=== PATIENT | male | born 1955 | race Asian ===

== ENCOUNTER 2017-12-30 13:42 | Outpatient (CLI) | payer OTHER | END 2017-12-30 13:43 | disposition home or self-care (01) | LOC: ULT 13:42 | DX: I27.20 Pulmonary hypertension, unspecified (principal); I08.1 Rheumatic disorders of both mitral and tricuspid valves | CPT/HCPCS: 93306 ==

== ENCOUNTER 2018-05-12 10:20 | Observation (INO) | payer OTHER ==
[2018-05-12 11:26] LABS: #Basophils 0.1 thou/uL (0.0-0.2); #Eosinphils 0.2 thou/uL (0.0-0.7); #Lymphocytes 2.6 thou/uL (1.20-3.40); #Monocytes 0.5 thou/uL (0.11-0.59); #Neutrophils 5.8 thou/uL (1.40-6.50); %Basophils 1.2 % (0.0-1.0); %Eosinophils 2.5 % (0.0-10.0); %Monocytes 5.2 % (0.0-10.0); %Neutrophils 63.1 % (42.0-75.0); Hemoglobin 14.1 g/dL (14.0-18.0); Mean Corpuscular HGB CONC 32.4 g/dL (32.0-36.0); Mean Corpuscular Hemoglobin 29.3 pg (27.0-31.0); Mean Corpuscular Volume 90.3 fL (78.0-98.0); Mean Platelet Volume 7.3 fL (7.4-10.4); Platelet Count 225 thou/uL (130-400); RBC Distribution Width 11.3 % (11.5-14.5); Red Blood Cell (RBC) Count 4.83 mill/uL (4.70-6.10); White Blood Cell (WBC) Count 9.2 thou/uL (4.8-10.8)
[2018-05-12 11:38] LABS: ALT (SGPT) 28 U/L (8-55); AST (SGOT) 25 U/L (5-34); Albumin 4.2 g/dL (3.4-4.8); Alkaline Phosphatase 96 U/L (40-150); Anion Gap 16 mmol/L (10-20); BUN (Urea Nitrogen) 15 mg/dL (8.4-25.7); Bilirubin, Total 0.6 mg/dL (0.2-1.2); CK (CPK) 126 U/L (30-200); Calc. Creatinine Clearance 0 mL/min (70-130); Calcium 9.4 mg/dL (7.8-10.44); Carbon Dioxide 21 mmol/L (23-31); Chloride 106 mmol/L (98-107); Estimated GFR-MDRD 72; Globulin 3.2 g/dL (2.4-3.5); Glucose 128 mg/dL (80-115); Potassium 4.7 mmol/L (3.5-5.1); Protein, Total 7.4 g/dL (5.8-8.1); Sodium 138 mmol/L (136-145)
--- NOTE | 2018-05-12 12:52 | RAD ---
CHEST ONE VIEW: History: Altered mental status. Comparison: None. FINDINGS: Lungs are clear. No pneumothorax or effusion. Cardiac silhouette and mediastinal contours are within normal limits. IMPRESSION: No acute intrathoracic abnormality. POS: [facility]
--- NOTE | 2018-05-12 12:54 | CT ---
HEAD CT WITHOUT CONTRAST: Date: 05-12-18 Comparison: 04-11-16 History: Altered mental status. Technique: Axial CT imaging at .8 mm intervals from vertex through skull base without contrast. FINDINGS: The imaged paranasal sinuses/mastoid air cells appear grossly unremarkable. There are a few scattered calvarial lytic lesions, unchanged when compared to the 04-11-16 examination . There is no intracranial hemorrhage, midline shift, mass effect, or ventricular enlargement. IMPRESSION: No acute findings. POS: [facility]
--- NOTE | 2018-05-12 12:58 | CT ---
CT ANGIOGRAM OF THE NECK: Date: 05-12-18 Comparison: None. History: Syncope and dizziness. Technique: Axial CT imaging at 2 mm intervals from skull base through lung apices with IV contrast us ing a CT angiogram protocol. Coronal and sagittal 3D reformatted imaging obtained. FINDINGS: Imaged lung apices unremarkable. Parotid glands and submandibular glands appear within normal limits. The retro antral fat the parapharyngeal fat appears clear bilaterally. Calcifications noted in the region of the tonsillar pillars bilaterally suggesting prior inflammatory change. The epiglottic and preepiglottic fat, the hyoid bone, the thyroid cartilage, the cricoid car tilage and the thyroid gland appear unremarkable. No lymphadenopathy is noted in the neck. The origin of the left subclavian artery, left common carotid artery, innominate artery, right subcla vian artery, and right common carotid artery appear grossly unremarkable. The origin of bilateral sejal tebral arteries appears normal. Bilateral vertebral arteries are patent and demonstrate no stenosis or occlusion. On the basis of NASCET criteria, there is no hemodynamically significant stenosis seen involving the common or internal carotid artery on either side. Review of the osseous structures demonstrates degenerative change at the atlantoaxial interspace. No worrisome lytic or blastic bone lesion. IMPRESSION: 1. Grossly unremarkable CT angiogram of the neck. POS: [facility]
[2018-05-12 14:19] LABS: Troponin I Less than 0.010 ng/mL (< 0.028)
[2018-05-12] MEDS ORDERED: Ondansetron ODT 4 MG TAB SL PRN (15:16)
[2018-05-12] MEDS ORDERED: Ondansetron PF 4 MG/2 ML Vial IVP PRN (15:16)
[2018-05-12] MEDS ORDERED: Acetaminophen 325 MG TAB PO PRN (15:16)
[2018-05-12] MEDS ORDERED: Meclizine HCl 25 MG TAB PO PRN (17:28)
[2018-05-12] MEDS ORDERED: Sodium Chloride 0.9% 1,000 ML IV SCH (17:30)
[2018-05-12 17:36] LABS: Troponin I Less than 0.010 ng/mL (< 0.028)
[2018-05-12] MEDS ORDERED: Rosuvastatin 20 MG TAB PO SCH (21:30)
--- NOTE | 2018-05-13 00:09 | HP ---
PRIMARY CARE PHYSICIAN: Philipp Elliott DO CHIEF COMPLAINT: "When I sit up, I feel dizzy, like I might pass out." HISTORY OF PRESENT ILLNESS: Mr. Yi is a very pleasant 62-year-old gentleman with a medical history of dyslipidemia, benign prostatic hypertrophy, anxiety/depression, pulmonary hypertension and obstructive sleep apnea, presenting in transfer from [facility] Emergency Department. He was in his usual state of good health, recalls having a brief upper respiratory infection last week, which had resolved. He got up this morning, went to let the dog out on the back patio. While standing, he abruptly became dizzy, feeling that he might pass out. He began to fall backwards, was able to catch himself on some patio furniture. He did not hit his head, nor have trauma. He felt nausea associated with the symptoms. No chest pain/chest pressure/shortness of breath. He did not lose consciousness. His heard the chairs moving on the patio, came to check on him. 911 was called, but the patient declined transfer to the emergency department at that time. Instead, he went to see his primary care doctor, Dr. Elliott. While in the office, he had a repeat episode, this time when going from a lying to a seated position. He describes this as dizziness with some mild nausea, improved after being in the same position for a protracted period of time. It does not feel like "the world is spinning." No prior similar symptoms. He subsequently went to [facility] Emergency Room, where CT angiography of the neck was done and was negative. CT of the head was done and was negative. Chest x-ray, cardiac biomarkers also performed, negative. EKG notable for sinus bradycardia at 57 beats per minute. Subsequent transfer to [facility] requested. At the time of my evaluation, Mr. Yi is comfortable and lying flat. When going from a lying to seated position or seated to standing, he feels dizzy, like he is going to fall backwards. With time in the same position, symptoms improve. Thus far, telemetry has been unremarkable, and he has remained hemodynamically stable. Formal orthostatics either not performed or not available for review from the emergency department, and will be performed here on the floor with a nurse in the next few minutes. He has not eaten today, has not been drinking much either. PAST MEDICAL HISTORY: 1. The patient with a history of pulmonary hypertension, diagnosed 1-1/2 years ago in [place], [place]. As followup for this diagnosis, he was referred for sleep study. He underwent a formal sleep evaluation and was diagnosed with obstructive sleep apnea. He uses CPAP at home. 2. Benign prostatic hypertrophy-he has been on Flomax for the last 1-1/2 years. 3. Dyslipidemia. 4. Anxiety/depression, well controlled on sertraline. PAST SURGICAL HISTORY: Sinus surgery in the care of Dr. Arshad. HOME MEDICATIONS: 1. Aspirin 81 mg p.o. once daily. 2. Crestor 20 mg p.o. once daily. 3. Flomax 0.4 mg p.o. once daily. 4. Sertraline 50 mg p.o. once daily. ALLERGIES: NONE. FAMILY HISTORY: Father of complications of hypertension and diabetes. Mother is living, has history of dementia and history of blood clots. He has 2 children, both of whom are healthy. 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 His hobbies include watching TV. He does not drink alcohol or use illicit drugs, and has no tobacco history. He is and his and children accompany him to the hospital today. REVIEW OF SYSTEMS: Full review of systems reviewed, addressed, negative except otherwise as mentioned above. PHYSICAL EXAMINATION: VITAL SIGNS: Current vital signs, blood pressure 119/71, heart rate 67, temperature 98.6, respiratory rate 16, and saturating 95% on room air. GENERAL: Awake, alert, oriented gentleman, resting comfortably. Able to provide a good history. HEENT: Eyes, no conjunctival injection, no scleral icterus. Extraocular movements are intact. Pupils are reactive to light and accommodation. Oropharynx is clear. Uvula is midline. NECK: Supple. Full range of motion. No distinct bruit. Cranial nerves intact. HEART: Regular rate and rhythm, no distinct murmurs/rubs/gallops. LUNGS: Clear to auscultation bilaterally. ABDOMEN: Soft, nontender, nondistended. EXTREMITIES: No clubbing/cyanosis/edema. NEUROLOGIC: Gross motor testing is intact, 5/5 proximal and distal muscle groups. Withstanding, becomes off-balance (Romberg), no abnormal reflexes elicited. Sensation intact. Cranial nerves intact. Cerebellar testing without distinct abnormality. LABORATORY/DATA REVIEW: I personally reviewed his EKG, sinus bradycardia at 57 beats per minute. Labs reviewed, 2 sets of cardiac biomarkers negative thus far. Chest x-ray negative. CT head unremarkable. CT angiogram of the neck negative. IMPRESSION: 1. Near-syncope in the context of dizziness with possible orthostatic component. 2. Pulmonary hypertension. 3. Obstructive sleep apnea. 4. Benign prostatic hypertrophy, on Flomax. 5. Dyslipidemia. 6. Anxiety/depression. PLAN/RECOMMENDATIONS: 1. Cardiology-one additional set of cardiac biomarkers planned. From a risk factor standpoint, takes a daily aspirin, is also on statin medication. No distinct murmur on physical exam. Check formal orthostatic vital signs. Unable to elicit if this was performed prior to transfer as well. Consideration for orthostatic hypotension in the context of Flomax, although the patient has been on this current regimen for over a year and a half. 2. Neurology-continue neuro checks q.4 hourly. Request MRI of the brain. Request Neurology consultation. Trial of low-dose meclizine. Benign positional vertigo remains on the differential. 3. Anxiety/depression-continue home sertraline. 4. Benign prostatic hypertrophy-place Flomax on hold for the time being. 5. Pulmonary-continue home CPAP. 6. Given his age and symptoms, he is at elevated risk, placed on observation status with further recommendations pending hospital course. 7. DVT prophylaxis-Lovenox. Job ID: [id number] MTDD
[2018-05-13 05:04] VITALS: BMI 25.9
[2018-05-13 06:59] LABS: #Basophils 0.1 thou/uL (0.0-0.2); #Eosinphils 0.2 thou/uL (0.0-0.7); #Monocytes 0.6 thou/uL (0.11-0.59); #Neutrophils 5.5 thou/uL (1.40-6.50); %Basophils 0.5 % (0.0-1.0); %Eosinophils 2.6 % (0.0-10.0); %Lymphocytes 32.1 % (21.0-51.0); %Neutrophils 58.8 % (42.0-75.0); Hemoglobin 13.1 g/dL (14.0-18.0); Mean Corpuscular HGB CONC 33.9 g/dL (32.0-36.0); Mean Corpuscular Hemoglobin 30.9 pg (27.0-31.0); Mean Corpuscular Volume 91.2 fL (78.0-98.0); Mean Platelet Volume 6.9 fL (7.4-10.4); Platelet Count 239 thou/uL (130-400); RBC Distribution Width 11.4 % (11.5-14.5); Red Blood Cell (RBC) Count 4.24 mill/uL (4.70-6.10); White Blood Cell (WBC) Count 9.3 thou/uL (4.8-10.8)
[2018-05-13 07:15] LABS: Anion Gap 9 mmol/L (10-20); BUN (Urea Nitrogen) 13 mg/dL (8.4-25.7); Calc. Creatinine Clearance 90 mL/min (70-130); Calcium 8.7 mg/dL (7.8-10.44); Carbon Dioxide 26 mmol/L (23-31); Chloride 107 mmol/L (98-107); Estimated GFR-MDRD 82; Glucose 102 mg/dL (80-115); Sodium 138 mmol/L (136-145)
[2018-05-13] MEDS ORDERED: Aspirin 81 mg Enteric Coated Tablet PO SCH (09:00)
[2018-05-13] MEDS ORDERED: Non-Formulary Item 1 EACH (Ferrous Sulfate [Ferosul] 325 MG) PO SCH (09:00)
[2018-05-13] MEDS ORDERED: Tamsulosin HCl 0.4 MG CAP PO SCH (09:00)
[2018-05-13] MEDS ORDERED: Rosuvastatin 20 MG TAB PO SCH ×2 (09:00→21:00)
[2018-05-13] MEDS ORDERED: Enoxaparin Sodium 40 MG/0.4 ML SYRINGE SC SCH (09:00)
[2018-05-13] MEDS ORDERED: Ferrous Sulfate 325 MG TAB PO SCH (09:00)
[2018-05-13 09:58] LABS: Hemoglobin A1c 6.3 % (4.0-6.0)
[2018-05-13 10:09] LABS: Cardiac Risk 3.2 (Less than 4.5)
--- NOTE | 2018-05-13 10:31 | MRI ---
MRI BRAIN AND INTERNAL AUDITORY CANALS WITH AND WITHOUT CONTRAST: DATE: 05/13/18 HISTORY: 62-year-old male with dizziness and altered mental status. TECHNIQUE: Multiple sequences obtained in axial, sagittal, and coronal planes; both whole brain images and thin slices through the IAC's, pre and post IV injection of gadolinium-based contrast agent: 15 mL MultiHa nce. FINDINGS: The ventricles are normal in size and configuration. There is no major intraaxial signal abnormality , restricted diffusion, abnormal intraaxial enhancement, mass, midline shift or any other mass effect , recent intraaxial hemorrhage, or extraaxial fluid collection. There is no abnormal enhancement, mass, or morphologic abnormality, involving the cerebellopontine an gles, 7th-8th nerve complexes, internal auditory canals, cochleae, vestibules, vestibular aqueducts, or semicircular canals. There is an incidental finding of a partially empty sella. IMPRESSION: Essentially normal. jn[] POS: [facility]
--- NOTE | 2018-05-13 10:42 | PDOC.PN ---
- Subjective Encounter Start Date: 05/13/18 Encounter Start Time: 07:50 -: old records requested/rev Patient seen and examined. No new complaints. No overnight events has dizziness with seating or standing - Objective Resuscitation Status - Order Detail: 05/12/18 17:22 Resuscitation Status Routine Resuscitation Status: FULL: Full Resuscitation MAR Reviewed: Yes Vital Signs & Weight: Vital Signs (12 hours) Temp Pulse Resp BP BP BP Pulse Ox 05/13/18 08:08 98.2 F 69 16 116/61 125/68 120/64 95 05/13/18 03:56 98.3 F 70 18 110/64 95 Weight Weight 170 lb 12.8 oz I&O: 05/12/18 05/13/18 05/14/18 06:59 06:59 06:59 Intake Total 1540 Balance 1540 Result Diagrams: 05/13/18 06:45 05/13/18 06:45 Radiology Reviewed by me: Yes (MRI normal) EKG Reviewed by me: Yes (nsr) Phys Exam - Physical Examination Constitutional: NAD HEENT: PERRLA, moist MMs, sclera anicteric Neck: no JVD, supple Respiratory: no wheezing, no rales, no rhonchi Cardiovascular: RRR, no significant murmur, no rub Gastrointestinal: soft, non-tender, no distention, positive bowel sounds Musculoskeletal: no edema, pulses present Neurological: non-focal, normal sensation, moves all 4 limbs Lymphatic: no nodes Psychiatric: normal affect, A&O x 3 Skin: no rash, normal turgor Dx/Plan (1) Dizziness Code(s): R42 - DIZZINESS AND GIDDINESS Status: Acute (2) Dyslipidemia Code(s): E78.5 - HYPERLIPIDEMIA, UNSPECIFIED Status: Chronic (3) ALEXANDRA on CPAP Code(s): G47.33 - OBSTRUCTIVE SLEEP APNEA (ADULT) (PEDIATRIC); Z99.89 - DEPENDENCE ON OTHER ENABLING MACHINES AND DEVICES Status: Chronic (4) BPH (benign prostatic hyperplasia) Code(s): N40.0 - BENIGN PROSTATIC HYPERPLASIA WITHOUT LOWER URINRY TRACT SYMP Status: Chronic - Plan cont current plan of care * dizziness suspecting from peripheral etiology, will continue meclizine * will give prednisone 40 mg po daily for 5 days for possible labyrinthitis * medication reviewed as below * symptomatic treatment. Review of Systems - Review of Systems Constitutional: negative: fever, chills, sweats, weakness, malaise, other Eyes: negative: Pain, Vision Change, Conjunctivae Inflammation, Eyelid Inflammation, Redness, Other ENT: Ear Pain, Nose Congestion. negative: Ear Discharge, Nose Pain, Nose Discharge, Mouth Pain, Mouth Swelling, Throat Pain, Throat Swelling, Other Respiratory: negative: Cough, Dry, Shortness of Breath, Hemoptysis, SOB with Excertion, Pleuritic Pain, Sputum, Wheezing Cardiovascular: light headedness. negative: chest pain, palpitations, orthopnea , paroxysmal nocturnal dyspnea, edema, other Gastrointestinal: negative: Nausea, Vomiting, Abdominal Pain, Diarrhea, Constipation, Melena, Hematochezia, Other Genitourinary: negative: Dysuria, Frequency, Incontinence, Hematuria, Retention , Other Musculoskeletal: negative: Neck Pain, Shoulder Pain, Arm Pain, Back Pain, Hand Pain, Leg Pain, Foot Pain, Other Skin: negative: Rash, Lesions, Joon, Bruising, Other - Medications/Allergies Allergies/Adverse Reactions: Allergies Allergy/AdvReac Type Severity Reaction Status Date / Time Beef Containing Products Allergy Verified 05/12/18 17:37 No Known Drug Allergies Allergy Verified 05/12/18 15:35 Pork/Porcine Containing Allergy Verified 05/12/18 17:37 Products Medications: Current Medications Aspirin (Ecotrin) 81 mg PO DAILY [facility] Last Admin: 05/13/18 08:38 Dose: Not Given Enoxaparin Sodium (Lovenox) 40 mg SC 0900 [facility] Last Admin: 05/13/18 08:36 Dose: 40 mg Ferrous Sulfate (Feosol) 325 mg PO DAILY [facility] Last Admin: 05/13/18 08:38 Dose: Not Given Meclizine HCl (Antivert) 25 mg PO Q8H [facility] Rosuvastatin Calcium (Crestor) 20 mg PO HS [facility] Sertraline HCl (Zoloft) 50 mg PO DAILY [facility] Last Admin: 05/13/18 08:38 Dose: Not Given Tamsulosin HCl (Flomax) 0.4 mg PO DAILY [facility] Last Admin: 05/13/18 08:38 Dose: Not Given
--- NOTE | 2018-05-13 12:17 | DIS ---
DATE OF ADMISSION: 05/12/2018 DATE OF DISCHARGE: 05/13/2018 PRIMARY CARE PHYSICIAN: Philipp Elliott, DISCHARGE DISPOSITION: Home. PRIMARY DISCHARGE DIAGNOSES: 1. Dizziness, suspecting from peripheral etiologies of vertigo. 2. Suspected acute labyrinthitis. SECONDARY DISCHARGE DIAGNOSES: Benign enlargement of prostate, dyslipidemia, and obstructive sleep apnea on CPAP. PRIMARY PROCEDURE/OPERATION: None. RADIOLOGICAL INVESTIGATION: CT brain normal. Chest x-ray normal. CT angiography of [place], negative. MRI brain normal. SIGNIFICANT LABORATORY DATA: WBC 9.3, hemoglobin 13.1, and platelet 239. Sodium 138, potassium 4.0, BUN 13, creatinine 0.93, and calcium 8.7. Cardiac enzyme negative. LDL 72. TSH 3.41. Hemoglobin A1c 6.3. DISCHARGE MEDICATIONS: 1. Prednisone 40 mg p.o. daily for 5 days. 2. Antivert 25 mg t.i.d. as directed. 3. Ferrous sulfate 325 mg p.o. daily. 4. Crestor 20 mg p.o. at bedtime. 5. Flomax 0.4 mg p.o. daily. 6. Ecotrin 81 mg daily. CONTRAINDICATION: None. CODE STATUS: Full code. INPATIENT CITIZENSHIP TEACHER: Javier [place] MD ALLERGIES: NO KNOWN DRUG ALLERGIES. DISCHARGE PLAN: Posthospital, the patient is instructed to follow up with ENT doctor. HOSPITAL COURSE: A 62-year-old male with above-mentioned medical problem, who was admitted by Dr. Ami Craft. Please see her H and P for further details. This patient experienced vertigo symptoms at home after waking up in his patio. He had episode of fall without any trauma and subsequently, he went to see primary care physician, where he had vertigo symptoms when he was standing from sitting position and at emergency room, he had similar vertigo symptoms. He did not have any symptoms related with position of head, but whenever he was changing from sitting, standing position at that time, he was experiencing vertigo symptoms. He did not have any cerebellar sign. He does have chronic sinus problem and he does have tinnitus as well as ear pain. He is following ENT as outpatient basis. We did MRI brain with internal auditory canal protocol, which was essentially normal. At this point, our suspicion is for acute labyrinthitis and that is why we are prescribing Antivert and prednisone for 5 more days. The patient is given safety instruction measures discussion and he will continue all his previous medication. The patient is seen and examined at bedside today. Please see my progress note from today for further details. This patient will be discharged home later on today once Neurology see him. Job ID: [id number]
[2018-05-13 12:29] VITALS: BP 127/72; TEMP 98.1
[2018-05-13] MEDS ORDERED: Meclizine HCl 25 MG TAB PO SCH (14:00)
== END 2018-05-13 15:27 | disposition home or self-care (01) ==
LOC: SCSER 10:20 → 2SW 13:00
PROVIDERS: ADMIT Internal Medicine; ATTEND Internal Medicine
DX: R42 Dizziness and giddiness (principal); N40.0 Benign prostatic hyperplasia without lower urinary tract symptoms; E78.5 Hyperlipidemia, unspecified; G47.33 Obstructive sleep apnea (adult) (pediatric); H93.19 Tinnitus, unspecified ear; H92.09 Otalgia, unspecified ear; F41.8 Other specified anxiety disorders; I27.20 Pulmonary hypertension, unspecified; Z79.82 Long term (current) use of aspirin; Z79.899 Other long term (current) drug therapy; Z91.018 Allergy to other foods; Z99.89 Dependence on other enabling machines and devices
CPT/HCPCS: 36415; 70450; 70498; 70551; 70553; 71045; 80048; 80053; 80061; 82550; 83036; 83605; 84443; 84484; 85025; 93005; 94760; 96360; 96361; 96372; G0378; J1650

== ENCOUNTER 2018-08-24 07:33 | Outpatient (CLI) | payer OTHER ==
--- NOTE | 2018-08-24 09:04 | CT ---
ABDOMEN AND PELVIC CT SCAN WITH AND WITHOUT IV CONTRAST: Date: 08/24/18 HISTORY: Microscopic hematuria. History of prior kidney mass. FINDINGS: Lung bases are clear. Liver appears unremarkable. Mobile gallstones in the gallbladder without gallbl adder wall thickening or evidence for acute cholecystitis. Pancreas, spleen, and adrenal glands are u nremarkable. 2 cm diameter left renal cyst. No renal calculus or acute obstruction. Normal appeari ng appendix. Bilateral fat-containing inguinal hernias. No large or small bowel obstruction. No absce ss, adenopathy, or abnormal fluid collection within the abdomen or pelvis. IMPRESSION: 1. Left renal cyst. 2. Bilateral fat-containing inguinal hernias. 3. No evidence for renal calculus or obstruction. 4. Unremarkable appearing urinary bladder. 5. Small hiatal hernia. 6. Other findings as above. POS: [facility]
[2018-08-24] MEDS ORDERED: Iopamidol 300 61% 100 ML VIAL FS ONE (18:08)
== END 2018-08-24 07:34 | disposition home or self-care (01) ==
LOC: SCSCT 07:33
PROVIDERS: ATTEND Urology
DX: R31.29 Other microscopic hematuria (principal); K44.9 Diaphragmatic hernia without obstruction or gangrene; K40.20 Bilateral inguinal hernia, without obstruction or gangrene, not specified as recurrent; N28.1 Cyst of kidney, acquired; K80.20 Calculus of gallbladder without cholecystitis without obstruction
CPT/HCPCS: 74178; 82565; Q9967

== ENCOUNTER 2018-12-31 08:36 | Outpatient (CLI) | payer OTHER ==
[2018-12-31 17:03] LABS: Hemoglobin 14.1 g/dL (14.0-18.0); Mean Corpuscular HGB CONC 34.8 g/dL (32.0-36.0); Mean Corpuscular Hemoglobin 32.1 pg (27.0-31.0); Mean Corpuscular Volume 92.2 fL (78.0-98.0); Mean Platelet Volume 7.2 fL (7.4-10.4); Platelet Count 237 thou/uL (130-400); RBC Distribution Width 11.2 % (11.5-14.5); Red Blood Cell (RBC) Count 4.39 mill/uL (4.70-6.10); White Blood Cell (WBC) Count 8.3 thou/uL (4.8-10.8)
[2018-12-31 17:09] LABS: PTT 30.9 SEC (22.9-36.1); Prothrombin Time 12.9 SEC (12.0-14.7)
[2018-12-31 17:17] LABS: Bilirubin Negative (Negative); Blood, Urine Negative (Negative); Clarity Clear (Clear); Glucose, Urine (Dipstick) Normal (Negative); Leukocyte Negative Leu/uL (Negative); Nitrite Negative (Negative); Protein, Urine (Dipstick) Negative (Neg-Trace); RBC/HPF 0-3 HPF (0-3); Squamous Epithelial None Seen HPF (0-3); Urobilinogen Normal mg/dL (Less than 2); WBC/HPF 0-3 HPF (0-3)
[2018-12-31 17:22] LABS: Anion Gap 11 mmol/L (10-20); BUN (Urea Nitrogen) 15 mg/dL (8.4-25.7); Calc. Creatinine Clearance 0 mL/min (70-130); Calcium 9.8 mg/dL (7.8-10.44); Carbon Dioxide 27 mmol/L (23-31); Chloride 103 mmol/L (98-107); Estimated GFR-MDRD 75; Glucose 109 mg/dL (80-115); Potassium 4.3 mmol/L (3.5-5.1); Sodium 137 mmol/L (136-145)
[2018-12-31 17:24] LABS: Bacteria/HPF None Seen HPF (None Seen)
== END 2018-12-31 08:37 | disposition home or self-care (01) ==
LOC: LABBT 08:36
PROVIDERS: ATTEND Urology
DX: Z01.818 Encounter for other preprocedural examination (principal); Z12.5 Encounter for screening for malignant neoplasm of prostate; N40.1 Benign prostatic hyperplasia with lower urinary tract symptoms; R35.0 Frequency of micturition; N52.9 Male erectile dysfunction, unspecified; R31.29 Other microscopic hematuria; N28.1 Cyst of kidney, acquired
CPT/HCPCS: 80048; 81001; 85027; 85610; 85730; 87086; 93005; 93010

== ENCOUNTER 2019-01-13 08:01 | Day surgery (SDC) | payer OTHER ==
[2018-12-31 15:40] VITALS: BMI 26.6
[2019-01-13] MEDS ORDERED: Levofloxacin 500 mg/D5W 100 ml Premix Bag ONE (09:03)
--- NOTE | 2019-01-13 09:37 | RAD ---
EXAM: Chest one view: HISTORY: Preoperative evaluation COMPARISON: 05/12/2018 FINDINGS: Stable slightly nodular hilar regions. Heart size: Within normal limits. Lungs: Clear of acute process. No evidence for pneumonia, pleural effusion, acute edema, or pneumothorax, or other significant acute process. IMPRESSION: No significant acute intrathoracic disease.
[2019-01-13] MEDS ORDERED: Ketamine 50 MG/ML (10ML VIAL) ONE (10:03)
[2019-01-13] MEDS ORDERED: Fentanyl 100 MCG/2 ML VIAL ONE (10:03)
[2019-01-13] MEDS ORDERED: Propofol 500 MG/50 ML VIAL ONE (10:03)
[2019-01-13] MEDS ORDERED: Midazolam HCl 2 mg/2 ml Vial ONE (10:03)
[2019-01-13] MEDS ORDERED: Phenazopyridine HCl 97.5 MG TABLET ONE (11:19)
[2019-01-13] MEDS ORDERED: HYDROcodone/Acetaminophen 5/325 mg Tablet ONE (12:23)
[2019-01-13] MEDS ORDERED: PROPOFOL 200 MG/20 ML VIAL ONE (12:37)
--- NOTE | 2019-01-13 18:04 | OP ---
DATE OF PROCEDURE: 01/13/2019 PREOPERATIVE DIAGNOSIS: A 63-year-old male with history of BPH symptoms. POSTOPERATIVE DIAGNOSIS: A 63-year-old male with history of BPH symptoms. PROCEDURES PERFORMED: 1. Cystoscopy. 2. UroLift implant x5. ANESTHESIA: TIVA. COMPLICATIONS: None apparent. DISPOSITION: To recovery room in stable condition. INDICATIONS FOR PROCEDURE AND HISTORY: Mr. Yi is a pleasant male with history of BPH, on medical therapy, desired to discontinue his medication as he is on dual medical therapy. He presented to my office and desired to proceed with UroLift as we had previously discussed this in the past. Risks and complications and indications were reviewed. Risks and complications including, but not limited to bleeding, pain, infection, injury to adjacent organs, urosepsis, stricture formation, chronic pain, migration of UroLift implant resulting in encrustation, pain, stone. All questions were answered to his satisfaction, and he desired to proceed. DESCRIPTION OF PROCEDURE: After an informed consent was signed, the patient was taken to the operating room and placed in a dorsal lithotomy position with the genital area prepped and draped in the usual surgical sterile fashion. A 21- Portuguese cystoscope was utilized for cystoscopic staging. Again, demonstrating bilobar hyperplasia of the prostate, moderately obstructing. Bladder was entered, which demonstrated UOs about 3 to 4 mm away from the bladder neck. At this time, we then transitioned to the UroLift cystoscopic device, 20-Portuguese with a 0-degree lens placing the first UroLift device about 1.5 cm distal to the bladder neck. We then subsequently treated the contralateral side. A total of 5 implants were utilized. We did stack the implant at the more [id number] area resolving his mid residual obstructive component. At the end of the procedure, nice anterior channel was noted with resolution of BPH component. We repeated the cystoscopy, which demonstrated no evidence of foreign body in the bladder neck or bladder mucosa. The bladder was completely emptied, and he tolerated the procedure well. He is transported to the recovery room and will undergo voiding trial and be discharged without an indwelling Pino catheter if no significant retention or hematuria of concern. He is discharged with ciprofloxacin for 5 days. . Job ID: [id number] [facility]
== END 2019-01-13 14:00 | disposition home or self-care (01) ==
LOC: SDC 08:01
PROVIDERS: ATTEND Urology
PROC: 0T7D8DZ Dilation of Urethra with Intraluminal Device, Via Natural or Artificial Opening Endoscopic (ICD-10-PCS; principal; 2019-01-13)
DX: N40.1 Benign prostatic hyperplasia with lower urinary tract symptoms (principal); R35.0 Frequency of micturition; N13.8 Other obstructive and reflux uropathy; N52.9 Male erectile dysfunction, unspecified; N28.1 Cyst of kidney, acquired; E78.00 Pure hypercholesterolemia, unspecified; G47.30 Sleep apnea, unspecified; Z79.82 Long term (current) use of aspirin; Z79.899 Other long term (current) drug therapy; Z91.018 Allergy to other foods
CPT/HCPCS: 71045; C1889; J1956; J2250; J2704; J3010

== ENCOUNTER 2021-10-24 19:00 | Outpatient (CLI) | payer MEDICARE | END 2021-10-24 19:01 | disposition home or self-care (01) | LOC: SLEEPLAB 19:00 | PROVIDERS: ATTEND Internal Medicine | DX: G47.33 Obstructive sleep apnea (adult) (pediatric) (principal); R06.83 Snoring; G47.10 Hypersomnia, unspecified; E66.9 Obesity, unspecified; Z68.23 Body mass index [BMI] 23.0-23.9, adult | CPT/HCPCS: 95811 ==